=== PATIENT | male | born 1955 | race Two or more races ===

== ENCOUNTER → 2020-10-16 | Outpatient (CLI) | payer OTHER, MEDICARE ==
[~2020-10-16] MED LIST: HYDR-3240 PO; SCOP1PAT11 TD; VENL25TA PO
== END | disposition home or self-care (01) ==
LOC: CFH 13:18
PROVIDERS: ATTEND Orthopaedic Surgery
DX: S92.191A Other fracture of right talus, initial encounter for closed fracture (principal); M19.071 Primary osteoarthritis, right ankle and foot; X58.XXXA Exposure to other specified factors, initial encounter; Y93.89 Activity, other specified; Y92.89 Other specified places as the place of occurrence of the external cause; Y99.8 Other external cause status